=== PATIENT | female | born 2005 | race Caucasian/White ===

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

== ENCOUNTER → 2023-08-07 | Outpatient (CLI) | payer OTHER, SELFPAY ==
--- NOTE | 2023-08-07 12:56 | MRI_ITS ---
STUDY: MRI RIGHT WRIST WITHOUT CONTRAST REASON FOR EXAM: Female, 18 years old. De Quervain, possible ganglion cyst, radial styloid tenosynovitis. TECHNIQUE: Standardized fat and water weighted pulse sequences were obtained in all 3 orthogonal planes. COMPARISON: Right wrist radiographs dated 10/05/2020. FINDINGS: A skin marker was placed along the lateral aspect of the right wrist at the site of clinical concern. Normal visualized distal radius and ulna. Normal distal radioulnar articulation (DRUJ). There is central disc thinning of the triangular fibrocartilage. Normal carpal bones. Normal radiocarpal, intercarpal and midcarpal articulations. Normal pisotriquetral articulation. Normal visualized interosseous scapholunate ligament. Normal visualized dorsal (extrinsic) ligaments. Normal visualized volar (extrinsic) ligaments. Normal extensor tendons. Normal flexor tendons. Normal carpal tunnel with a normal median nerve. Normal carpometacarpal articulation of the thumb. Normal second through fifth carpometacarpal articulations. Normal visualized metacarpal bones. There is no demonstrated soft tissue abnormality. MRI/Upper Ext Joint Only(Routine) IMPRESSION: No MRI evidence of De Quervain tenosynovitis, ganglion cyst, or radial styloid abnormality. Central disc thinning of the triangular fibrocartilage. Electronically Signed: Darryl Figueroa MD at 8:40 EDT ,
== END | disposition home or self-care (01) ==
LOC: MRI 12:31
PROVIDERS: PCP Student in an Organized Health Care Education/Training Program; Referring Provider Orthopaedic Surgery Sports Medicine; Visit Provider Orthopaedic Surgery Sports Medicine
DX: M65.4 Radial styloid tenosynovitis [de Quervain] (principal)
CPT/HCPCS: 73221

== ENCOUNTER 2023-12-08 17:47 | Emergency (ER) | payer OTHER, SELFPAY ==
[2023-12-08 17:47] VITALS: BP 136/74; PULSE 94; RESP 18; TEMP 36.3; O2SAT 100; BMI 28.0
--- NOTE | 2023-12-08 17:50 | RAD_ITS ---
INDICATION: Trauma, injury EXAMINATION/TECHNIQUE: X-RAY - LEFT XR Wrist Min 3 Views 3 VIEWS COMPARISON: None. FINDINGS: SOFT TISSUES: No soft tissue swelling or gas. No radiopaque foreign body. BONES/JOINTS: No acute fracture. Joint spaces anatomically aligned. RAD/Wrist min 3 Views IMPRESSION: No acute bony injury. Electronically Signed: Brian Xiong MD at 18:34 EDT ,
--- NOTE | 2023-12-08 20:42 | EX.ED.UPPERE ---
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 Client thought her wrist was the guard rail at the commode and started squeezing it very hard. She went to pull her wrist out and while twisting and felt a pop over the lateral aspect of the left wrist. She states that when she moves her wrist she continues to feel a pop. She notes tenderness laterally. Denies any numbness. PFSH PFS Medical History Left shoulder strain Physical exam, pre-employment De Quervain's tenosynovitis, right Gastroenteritis Irritable bowel syndrome Urinary tract infection with hematuria Hx of pyelonephritis Home Medications ?Medication ?Instructions ?Recorded ?Last Taken ?Type norgestimate 0.25 mg-ethinyl 1 tab PO DAILY 11/25/20 Unknown History estradiol 35 mcg tablet (Sprintec (28)) ibuprofen 200 mg tablet 600 mg (3 x 200 mg) PO ONCE #3 tabs 03/15/23 Unknown Rx Allergy/AdvReac Type Severity Reaction Status Date / Time cephalexin (From Keflex) Allergy Hives Verified 12/08/23 17:47 spider venom Allergy Hives Verified 12/08/23 17:47 Surgical History Hx of wisdom tooth extraction Social History household members: family Smoking Status: Never smoker alcohol intake: never substance use type: does not use ROS ROS ED Constitutional Constitutional ED: Denies chills or weight loss Eyes Eyes: Denies change in vision or diplopia ENT ENT ED: Denies ear pain, rhinorrhea or sore throat Cardiovascular Cardiovascular: Denies chest pain, orthopnea, palpitations or racing heartbeat Respiratory/Chest Respiratory/Chest: Denies cough, dyspnea or orthopnea Gastrointestinal Gastrointestinal: Denies abdominal pain, diarrhea, nausea or vomiting Genitourinary Genitourinary ED: Denies dysuria, hematuria or urinary frequency Musculoskeletal Musculoskeletal: Reports other Details: see HPI ; Denies arthralgias or myalgias Integumentary Denies abscess or rash Neurologic Neurologic: Denies headache(s) or weakness Psychiatric Psychiatric: Denies anxiety, depression, suicidal ideation or suicidal thoughts Endocrine Endocrinology: Denies polydipsia, polyphagia or polyuria Allergic/Immunologic Allergic/Immunologic ED: Denies mouth swelling, tongue swelling or urticaria EXAM Physical Exam Const Vital Signs: 12/08/23 17:47 Temperature 97.4 F L Temperature Source Temporal Pulse Rate 94 Respiratory Rate 18 Blood Pressure 136/74 H Blood Pressure Mean 94 Pulse Ox 100 Oxygen Delivery Method Room Air Positive well nourished and well developed General Appearance ED: well developed and NAD HEENT Reports normocephalic, head/scalp atraumatic and moist mucous membranes Eyes PERRL and EOMs intact bilaterally Neck no lymphadenopathy, supple and no JVD Resp normal respiratory effort and clear to auscultation bilaterally Cardio regular rate, regular rhythm and no murmurs GI normal to inspection, nondistended, normoactive bowel sounds and non-tender Palpation: soft Back/Spine no CVA tenderness and normal ROM Extremity Extremity Narrative: Patient has tenderness over the radial styloid and along the abductor pollicis /extensor pollicis tendon. There is no tenderness between the radius and the ulna. I do not appreciate ligamentous instability. Neurovascular the patient appears intact. No significant swelling or ecchymosis is seen. General Extremety ED: Negative for edema General Extremity: Negative for edema Neuro oriented x3 and CN's II-XII intact bilaterally Sensorium / Orientation: alert Motor Exam: strength 5/5 throughout Psych mental status grossly normal Mood & Affect: Negative for depressed or tearful Skin no rashes or lesions noted and no wounds MDM MDM MDM Narrative Medical decision making narrative: Differential diagnosis includes but not limited to fracture ligamentous sprain tendon injury neurovascular injury My independent interpretation of the plain films of the left wrist is no acute fracture. Patient be placed in a thumb spica splint. Advised to take anti-inflammatories and ice as needed. [facility]up with [facility] for Workmen's Comp. History & Record Review Discussion w/independent historian: Patient Radiography Diagnostic Testing: Clinical Impression(s) from Imaging Studies Wrist X-Ray 12/08/23 17:50 IMPRESSION: No acute bony injury. Electronically Signed: Brian Xiong MD at 18:34 EDT , Discharge Plan Triage Chief Complaint: Upper Extremity Injury ED Provider: Antonio West Dx/Rx/DC Orders Clinical Impression: Left wrist sprain, Acute wrist pain Instructions: ED Wrist Sprain Prescriptions: No Action ibuprofen 200 mg tablet 600 mg PO ONCE Qty: 3 0RF norgestimate-ethinyl estradiol [Sprintec (28)] 0.25-35 mg-mcg Tablet 1 tab PO DAILY Primary Care Provider: Camron Buenrostro Referrals: Camron Buenrostro DO [Primary Care Provider] - [facility] [Non-Staff] - As soon as possible (for workman's compensation follow up) Print Language: [place] Disposition Disposition: Home, Self Care Discharge Date/Time: 12/08/23 21:04
== END 2023-12-08 21:04 | disposition home or self-care (01) ==
LOC: ED 20:56
PROVIDERS: Emergency Provider Emergency Medicine; PCP Student in an Organized Health Care Education/Training Program; Referring Provider Emergency Medicine; Visit Provider Emergency Medicine
DX: S63.92XA Sprain of unspecified part of left wrist and hand, initial encounter (principal); X50.1XXA Overexertion from prolonged static or awkward postures, initial encounter; Y99.0 Civilian activity done for income or pay; Z88.1 Allergy status to other antibiotic agents
CPT/HCPCS: 73110; 99283

== ENCOUNTER → 2024-02-08 | Outpatient (CLI) | payer OTHER, SELFPAY ==
--- NOTE | 2024-02-08 16:50 | RAD_ITS ---
STUDY: X-RAY - RIGHT SHOULDER REASON FOR EXAM: Female, 18 years old. Right shoulder injury TECHNIQUE: 4 view(s) of the shoulder. COMPARISON: None. FINDINGS: Normal glenohumeral articulation. Normal acromioclavicular joint. Normal acromion. Normal humeral head and visualized proximal humerus. The soft tissue structures are unremarkable. There is no demonstrated fracture. Normal visualized pulmonary apex. RAD/Shoulder min 2 Views IMPRESSION: Normal x-ray examination of the shoulder. Electronically Signed: Delonte Zavala MD at 17:58 EST ,
== END | disposition home or self-care (01) ==
PROVIDERS: PCP Student in an Organized Health Care Education/Training Program; Referring Provider Physician Assistant Surgical; Visit Provider Physician Assistant Surgical
DX: S46.911A Strain of unspecified muscle, fascia and tendon at shoulder and upper arm level, right arm, initial encounter (principal)
CPT/HCPCS: 73030

== ENCOUNTER 2024-03-21 11:30 | Outpatient (RCR) | payer OTHER, BC, SELFPAY ==
--- NOTE | 2024-02-19 12:20 | HP.PTEVAL_ITS ---
Patient's Visit Information Visit Information Visit Information: MICHAEL POLK is a 18 year old F referred to Physical Therapy by TONYA Meyers with a diagnosis of RIGHT SHOULDER STRAIN. Date of Evaluation: 02/19/24 Physical Therapist: Hussein Brody, PT, Cert MDT, OCS Visit Plan Frequency: 2x /Week Duration: 4-6 Weeks Plan: PT INTERVENTIONS ROM SHOULDER ,ERTC/SCAPULAR STRENGTHENING ,POSTURAL EX'S AND MODALTIES Subjective Subjective: This 18 y/o female presents to physical therapy with right shoulder pain. Patient injury to right shoulder 02/08/24 at work transferring patient . Patient developed with pain and paresthesia/tingling. [facility] x- [facility] - .Patient was on light duty until 03/01/24. Pain/numbness is anterior julia ulder . Aggravating lifting arm ,lifting OH,pushing and sleeping. Alleviating cold and Advil. Symptoms affects sleeping. Patient [facility] 03[facility]. Patient is on light duty . Patient condition affects QOL and function and RTW full duty. Patient goals to RTW and no pain. SOCAIL: single ,lives with parents VOCATION: [employer] Pain Right Shoulder: Pain Intensity (Out of 10): 8 Pain Intensity Range: 10 Objective Objective: POSTURE: mild forward posture head forward posture PALAPTION: tender anterior shoulder long head bicep NEURO: c/o paresthesia/tingling ,anterior shoulder ,reflexes C5-6-7 2/3 AROM: shoulder flexion 120 degrees pain ,abduction 100 degrees pain,ER 90 degrees ,IR T12 PROM: shoulder flexion 150 degrees ,150 degrees abduction ,ER 90 MMT: ( peak force) infraspinatus 9.8 ,subscapularis 7.8 ,supraspinatus 8.9 ,deltoid 6.8 pain CERVICAL ROM: flexion WFL ,lateral flexion/rotation ,extension MIN loss Special Tests C/S Radiculapathy - Left Upper limb tension test: Negative C/S Radiculapathy - Right Upper limb tension test: Negative C/S Radiculapathy - Left Spurlings: Negative C/S Radiculapathy - Right Spurlings: Negative Sharp Mary: Negative Vertebral Artery Test: Negative Alar Ligament Test: Negative R Shoulder Lift Off Test - Subscapular Tear: Negative R Shoulder Drop Sign - IS Test: Negative R Shoulder Empty Can - SS: Positive R Shoulder Belly Press - SupScap: Negative R Shoulder Neer - Impingement: Positive R Shoulder Ipke Case - Impingement: Positive Balance/Special Test Scores Quick DASH Score: 61.3625 Goals Goal 1:: Patient to be I with HEP shoulder Goal Time Frame: 4-6 Weeks Goal 2:: Patient to improve AROM 150 degrees flexion/abduction for ADLS above 90 degrees Goal Time Frame: 4-6 Weeks Goal 3:: Patient to improve peak force RTC and deltoid by 5-10# to improve function Goal Time Frame: 4-6 Weeks Goal 4:: Patient to demonstrate 60 % improvement with less pain and improved function with job deamds Goal Time Frame: 4-6 Weeks Goal 5:: Patient to improve quick dash by 5 points to improve QOL and function. Goal Time Frame: 4-6 Weeks Rehabilitation Potential Physical Therapy Diagnosis: This patient injury to right shoulder transferring patient felt pain/numbness with pain ,decrease ROM ,weakness thus benefit from skilled PT Rehabilitation Potential: Good Anticipated Interventions Patient/Client Instruction: Educate patient on: Condition and Plan of Care For the Purpose of:: To decrease pain, To increase ROM, To improve muscle performance and motor function, To improve ability to perform ADL's, To increase tolerance to activity/condition/position, To improve ability of physical actions for home/community/work/leisure, To improve health of tissue, To decrease soft tissue restriction, To increase flexibility/ROM and To improve tolerance to ADL's Therapeutic Exercise to Include: Strength training, Postural training, Flexibilty training, Passive ROM, Active ROM and Scapular Strength/Stabilization Comment: RTC For the Purpose of:: To decrease pain, To increase ROM, To improve muscle performance and motor function, To improve ability to perform ADL's, To improve ability of physical actions for home/community/work/leisure, To improve health of tissue, To decrease soft tissue restriction, To increase flexibility/ROM, To improve endurance, To reduce risk of recurrence and To improve tolerance to ADL's TENS: Yes IF ES: Yes Cryotherapy (ice pack, ice massage): Yes Thermo therapy (hot pack): Yes Ultrasound (thermal/non thermal): Yes For the Purpose of:: To decrease pain, To increase ROM, To improve muscle performance and motor function, To improve ability to perform ADL's, To increase tolerance to activity/condition/position, To improve ability of physical actions for home/community/work/leisure, To improve health of tissue, To decrease soft tissue restriction, To increase flexibility/ROM and To improve tolerance to ADL's Text: Thank you for the opportunity to evaluate your patient. For Medicare and Medicare HMO plans, please review the plan of care and approve it. It will need to be FAXED BACK to us at [phone] for Medicare purposes. For Medicare only, by signing this I certify the plan of care. Please let me know if there are questions or concerns regarding this plan of care. Physician Signature: ___Date:
--- NOTE | 2024-03-21 12:19 | HP.PTDCSUM ---
Discharge Summary D/C summary: It has been my pleasure to treat MICHAEL POLK referred by TONYA Meyers, with the diagnosis of RIGHT SHOULDER STRAIN for a total of 14 visit(s). Discharge Date: Please see the following information for a summary of their discharge status. Subjective Subjective: Doing good no pain Ready for full duty Pain Right Shoulder: Pain Intensity (Out of 10): 0 Overall Improvement % Improvement: 100 Objective Objective/Function: AROM: shoulder flexion 170 degrees ,abduction 170 degrees ,ER 90 degrees ,IR T10 MMT: infraspinatus 17.9 ,supraspinatus 19.9 ,deltoid 19.1 Goals Goal 1:: Patient to be I with HEP shoulder Goal 2:: Patient to improve AROM 150 degrees flexion/abduction for ADLS above 90 degrees Goal 3:: Patient to improve peak force RTC and deltoid by 5-10# to improve function Goal 4:: Patient to demonstrate 60 % improvement with less pain and improved function with job deamds Goal 5:: Patient to improve quick dash by 5 points to improve QOL and function. Plan Plan: D/C D/C Information d/c sentence: If there are questions or concerns regarding this patient's physical therapy, please feel free to call me at [phone]. Thank you for the referral of this patient. Sincerely, Hussein Brody PT, Cert MDT, OCS Balance/Gait/Functional tests Balance/Special Test Scores Quick DASH Score: 2.2725 Improvement % Improvement: 100
== END 2024-03-21 19:00 | disposition home or self-care (01) ==
LOC: PT 11:30
PROVIDERS: PCP Student in an Organized Health Care Education/Training Program; Visit Provider Physician Assistant Surgical
DX: S46.911D Strain of unspecified muscle, fascia and tendon at shoulder and upper arm level, right arm, subsequent encounter (principal)
CPT/HCPCS: 97110; 97140; 97161; 97530

== ENCOUNTER 2024-04-11 05:41 | Emergency (ER) | payer BC, SELFPAY ==
[2024-04-11 05:41] VITALS: BP 135/82; PULSE 90; RESP 16; TEMP 36.8; O2SAT 100; BMI 27.6
--- NOTE | 2024-04-11 05:55 | EDS_ITS ---
HPI History of Present Illness Chief Complaint: Abd Pain Informant: patient Narrative Narrative: Patient is a 18-year-old female with past medical history of IBS. She states she went to bed normally and then awoke around 4 in the morning and noticed pain in the mid to right upper quadrant of her abdomen and had 1 bout of nausea and vomiting. She states that she has not had any type of dysuria or hematuria that she is not on her menstrual cycle and she denies any concern for STD or . She does report that abdominal pain is kind of normal for her as she has a history of IBS but that this is different in nature and secondary to his abnormal presentation from her baseline she presents for evaluation [facility] Medical History Left shoulder strain Physical exam, pre-employment De Quervain's tenosynovitis, right Gastroenteritis Irritable bowel syndrome Urinary tract infection with hematuria Hx of pyelonephritis Home Medications ?Medication ?Instructions ?Recorded ?Last Taken ?Type norgestimate 0.25 mg-ethinyl 1 tab PO DAILY 11/25/20 U nknown History estradiol 35 mcg tablet (Sprintec (28)) ibuprofen 200 mg tablet 600 mg PO ONCE PRN fever or pain 04/11/24 Unknown History ketorolac 10 mg tablet 10 mg PO 4X/DAY PRN pain 5 d ays 04/11/24 Unknown Rx #20 tabs ondansetron 4 mg disintegrating 4 mg PO TID PRN nausea and 04/11/24 Unknown Rx tablet vomiting #21 tabs oxycodone-acetaminophen 5 mg-325 1 tab PO Q6H PRN pain 3 days #12 04/11/24 Unknown Rx mg tablet (Percocet) tabs Allergy/AdvReac Type Severity Reaction Status Date / Time cephalexin (From Keflex) Allergy Hives Verified 04/11/24 05:45 spider venom Allergy Hives Verified 04/11/24 05:45 Surgical History Hx of wisdom tooth extraction Social History household members: family Smoking Status: Never smoker alcohol intake: never substance use type: does not use ROS ROS ED Constitutional Constitutional ED: Denies chills or fever(s) ENT ENT ED: Denies sore throat Cardiovascular Cardiovascular: Denies chest pain Respiratory/Chest Respiratory/Chest: Denies cough or dyspnea Gastrointestinal Gastrointestinal: Reports abdominal pain, nausea and vomiting; Denies diarrhea Genitourinary Genitourinary ED: Denies dysuria or hematuria Musculoskeletal Musculoskeletal: Reports back pain Integumentary Denies rash Neurologic Neurologic: Denies headache(s) Hematologic/Lymphatic Hematologic/Lymphatic: Denies easy bleeding or easy bruising EXAM Physical Exam Const Vital Signs: 04/11/24 05:41 04/11/24 06:58 Temperature 98.2 F Temperature Source Oral Pulse Rate 90 84 Respiratory Rate 16 18 Blood Pressure 135/82 H 132/71 H Blood Pressure Mean 99 91 Pulse Ox 100 99 Oxygen Delivery Method Room Air Room Air Positive well nourished and well developed General Appearance ED: well developed; Negative for pallor HEENT Reports moist mucous membranes HEENT Narrative: There is a single herpangina lesion along the right posterior pharynx/uvula without trismus change in voice or difficulty with secretions Eyes PERRL and EOMs intact bilaterally General Eye ED: Negative for scleral icterus Neck supple Neck Narrative: No nuchal rigidity or meningeal signs noted Resp normal respiratory effort and clear to auscultation bilaterally Cardio regular rate and regular rhythm Rate: other Other Details: Heart is regular rate and rhythm without murmurs rubs or gallops Radial and carotid pulses equal and symmetric GI non-distended and no masses GI Narrative: Abdomen is soft and nondistended with normal active bowel sounds. There is pain with palpation in the midepigastric and right upper quadrant region without voluntary guarding or rigidity or pulsatile mass Negative Hill sign Auscultation: normoactive bowel sounds Palpation: soft Back/Spine Back/Spine Narrative: Mild right CVA pain noted Extremity normal to inspection Neuro oriented x3, CN's II-XII intact bilaterally and no sensory deficits noted Sensorium / Orientation: alert Motor Exam: strength 5/5 throughout Psych mental status grossly normal Skin no rashes or lesions noted and no wounds Skin Narrative: No overlying soft tissue changes to suggest trauma or infection General Skin Exam: Negative for jaundice or pallor MDM MDM MDM Narrative Medical decision making narrative: Patient arrived to the ER with stable vitals and a soft nonsurgical abdomen therefore I felt no need for emergent imaging study. With pain in the upper abdomen and right upper quadrant there is concern for gastritis versus viral stomach infection such as norovirus versus rotavirus versus acute pancreatitis versus biliary colic or acute cholecystitis. Patient could also potentially have an atypical presentation for complication or with mild right- sided CVA pain a kidney stone or pyelonephritis. With the herpangina lesions in the posterior pharynx there is also concern for early strep presentation. Secondary to his basic labs were obtained with urine sample and rapid strep swab. White count is normal there is no left shift going against systemic infectious process. Liver enzymes are normal going against biliary colic and lipase is normal going against acute pancreatitis. Patient is urine sample does show +1 bacteria but there is contamination with skin cells and she does not have urinary symptoms and therefore I do not feel this is UTI in nature. She does have occult blood on the urine dip but no blood noted on micro however she is not on her menstrual cycle and with pain along the right side of abdomen that is not improving with medication there is concern this could be atypical presentation for kidney stone or gallbladder dysfunction and therefore a CT of the abdomen pelvis with IV contrast will be obtained. At this time imaging studies are still pending and therefore patient be signed out to the [facility] History & Record Review Discussion w/independent historian: Patient Lab Data Attestation: I reviewed the patient's lab results. Labs: Laboratory Results - last 24 hr 04/11/24 04/11/24 05:47 06:03 WBC 8.4 RBC 5.17 Hgb 13.8 Hct 41.8 MCV 80.9 L MCH 26.7 L MCHC 33.0 RDW Std Deviation 39.6 RDW Coeff of Bryant 13.5 Plt Count 391 MPV 9.1 Immature Gran % (Auto) 0.400 Neut % (Auto) 50.1 Lymph % (Auto) 40.0 [place] % (Auto) 7.1 Eos % (Auto) 1.7 Baso % (Auto) 0.7 Absolute Neuts (auto) 4.2 Absolute Lymphs (auto) 3.37 Nucleated RBC % 0 Sodium 139 Potassium 3.8 Chloride 105 Carbon Dioxide 22.5 Anion Gap 12 BUN 9 Creatinine 0.74 Estim Creat Clear Calc 136.50 Est GFR (MDRD) Non-Af 118 BUN/Creatinine Ratio 11.8 Glucose 145 H Calcium 9.0 Total Bilirubin 0.64 Direct Bilirubin 0.27 AST 14 ALT 7 Alkaline Phosphatase 68 Total Protein 7.0 Albumin 3.7 Globulin 3.3 Lipase 26 Urine Color Yellow Urine Clarity Sl. Cloudy Urine pH 6.0 Ur Specific [place] 1.015 Urine Protein 15 H Urine Glucose (UA) Normal Urine Ketones Negative Urine Occult Blood 250 H Urine Nitrite Negative Urine Bilirubin Negative Urine Urobilinogen Normal Ur Leukocyte Esterase 500 H Urine RBC 0 SEEN Urine WBC 10-25 SEEN Ur Squamous Epith Cells 5-10 SEEN Urine Bacteria 1+ Urine Mucus 0 SEEN Urine Test Negative Discharge Plan Triage Chief Complaint: Abd Pain ED Provider: José Smith Dx/Rx/DC Orders Prescriptions: New ondansetron 4 mg tablet,disintegrating 4 mg PO TID PRN (Reason: nausea and vomiting) Qty: 21 0RF ketorolac 10 mg tablet 10 mg PO 4X/DAY PRN (Reason: pain) 5 Days Qty: 20 0RF oxycodone-acetaminophen [Percocet] 5-325 mg tablet 1 tab PO Q6H PRN (Reason: pain) 3 Days Qty: 12 0RF No Action norgestimate-ethinyl estradiol [Sprintec (28)] 0.25-35 mg-mcg Tablet 1 tab PO DAILY ibuprofen 200 mg tablet 600 mg PO ONCE PRN (Reason: fever or pain) Primary Care Provider: Camron Buenrostro Referrals: Camron Buenrostro DO [Primary Care Provider] - Print Language: [place]
[2024-04-11] MEDS: Ketorolac 30 MG/ML Syringe IV (06:07)
[2024-04-11] MEDS: Ondansetron 4 MG/2 ML Vial IV (06:07)
[2024-04-11] MEDS: 0.9% Normal Saline (1000mL) 1,000 ML 999 ML IV (06:07)
[2024-04-11 06:16] LABS: Mucous, Urine 0 SEEN /hpf (<or=2+)
[2024-04-11 06:24] LABS: Color, Urine Yellow (Yellow); Glucose, Dipstick Normal (Normal); Ketone-Dipstick Negative (Negative); Leukocyte Esterase-Dipstick 500 /ul (Negative); Nitrite-Dipstick Negative (Negative); Occult Blood-Urine 250 /ul (Negative); Protein-Dipstick 15 mg/dl (Negative); Specific Gravity, Urine 1.015 (1.002-1.030); Urine Bilirubin Dipstick Negative (Negative); Urine Clarity Sl. Cloudy (Clear); Urine Urobilinogen Normal (Normal)
[2024-04-11 06:24] LABS: Absolute Lymphocyte Count 3.37 X10^3/uL (0.83-4.51); Absolute Neutrophil Count 4.2 X10^3/uL (2.0-7.7); Basophil# 0.06 X10^3/uL; Basophil% 0.7 % (0-1); Eosinophil# 0.14 X10^3/uL; Eosinophils% 1.7 % (0-5); Hematocrit 41.8 % (37-47); Hemoglobin 13.8 g/dL (12.0-15.0); Lymphocyte # 3.37 X10^3/ul (0.83-4.51); Mean Corpuscular Hgb 26.7 pg (27.0-32.0); Mean Corpuscular Volume 80.9 fL (81-99); Mean Platelet Vol. 9.1 fl (6.2-12.0); Monocyte% 7.1 % (0-10); NRBC Flagged by Analyzer 0 % (0-5); Neutrophil # 4.22 X10^3/uL (2.7-7.7); Neutrophil % 50.1 % (47-70); Platelet Count 391 K/mm3 (150-450); RBC Distribution Width CV 13.5 % (11.6-14.6); RBC Distribution Width SD 39.6 fl (35.1-43.9); Red Blood Count 5.17 M/mm3 (4.2-5.4); White Blood Count 8.4 K/mm3 (4.4-11.0)
[2024-04-11 06:48] LABS: AST(SGOT) 14 U/L (<=31); Alanine Aminotransfer ALT/SGPT 7 U/L (<=34); Albumin, Serum 3.7 g/dL (3.5-5.0); Alkaline Phosphatase 68 U/L (35-104); Anion Gap 12 (5-15); BUN 9 mg/dL (4-19); BUN/Creat Ratio 11.8 RATIO (10-20); Bilirubin, Direct 0.27 mg/dL (0.00-0.30); Carbon Dioxide 22.5 mmol/L (21.0-32.0); Chloride 105 mmol/L (98-108); Creatinine, Serum 0.74 mg/dL (0.70-1.20); EST Glomerular Filtration Rate 118 (>60); Globulin 3.3 g/dL (2.2-4.2); Glucose 145 mg/dL (70-99); Lipase 26 U/L (13-75); Potassium 3.8 mmol/L (3.3-5.1); Sodium Level 139 mmol/L (133-145); Total Bilirubin 0.64 mg/dL (0.00-1.30)
[2024-04-11] MEDS: Morphine 4 MG/ML Syringe IV (06:56)
[2024-04-11 06:58] VITALS: BP 132/71; PULSE 84; RESP 18; O2SAT 99
[2024-04-11 07:26] LABS: Bacteria 1+ /hpf (None Seen); Red Blood Cells-Urine 0 SEEN /hpf (0-5); Squamous Epithelial Cells - UA 5-10 SEEN /hpf (5-10); White Blood Cells 10-25 SEEN /hpf (0-5)
[2024-04-11 07:27] LABS: Internal QC Validated? YES +Cl - CLEAR BKGD; Pregnancy, Urine Negative Negative
[2024-04-11] MEDS: HYDROmorphone 0.5 MG/0.5 ML SYRINGE IV (07:52)
[2024-04-11 08:00] VITALS: BP 117/93; PULSE 76; RESP 18; O2SAT 99
--- NOTE | 2024-04-11 08:08 | CT_ITS ---
PROCEDURE: ABDOMEN/PELVIS W IV CONT ONLY REASON FOR EXAM: Right-sided abdominal pain. History of inflammatory bowel syndrome. TECHNIQUE: Abdomen and pelvis CT with intravenous contrast. COMPARISON: CT abdomen and pelvis of 01/16/2020.. FINDINGS: Lung bases: Clear Liver: Unremarkable. Gallbladder: Unremarkable. Spleen: Unremarkable. Pancreas: Unremarkable. Adrenals: Unremarkable. Kidneys: No renal calculus is seen. No evidence of hydronephrosis. Bladder: Unremarkable. Reproductive Organs: Unremarkable. Bowel: A moderate stool burden is seen. The bowel-gas pattern is otherwise unremarkable. Appendix: Normal. Lymph nodes: No suspicious lymph node enlargement. Vasculature: Major vascular structures are unremarkable. Peritoneum / Retroperitoneum: No significant amount of free fluid is seen. No free air. Bones: Unremarkable. No area of abnormal postcontrast enhancement is seen. CT/Abdomen/Pelvis W IV Cont ONLY IMPRESSION: 1. Moderate stool burden. 2. No acute process is seen. One or more dose reduction techniques were used (e.g., Automated exposure contr ol, adjustment of the mA and/or kV according to patient size, use of iterative reconstruction technique). Reading Location: [id number]
[2024-04-11 09:52] VITALS: BP 117/93; PULSE 76; RESP 18; TEMP 36.6; O2SAT 99
== END 2024-04-11 09:53 | disposition home or self-care (01) ==
PROVIDERS: Emergency Provider Emergency Medicine; PCP Student in an Organized Health Care Education/Training Program; Visit Provider Emergency Medicine
DX: R10.11 Right upper quadrant pain (principal); R11.2 Nausea with vomiting, unspecified; K58.9 Irritable bowel syndrome, unspecified; B08.5 Enteroviral vesicular pharyngitis; Z88.1 Allergy status to other antibiotic agents; Z87.19 Personal history of other diseases of the digestive system; Z87.440 Personal history of urinary (tract) infections
CPT/HCPCS: 74177; 80048; 80076; 81001; 81025; 83690; 85025; 87651; 96361; 96374; 96375; 99283; Q9967; A4216; J2405

== ENCOUNTER 2024-04-11 16:00 | Emergency (ER) | payer BC, SELFPAY ==
[2024-04-11 16:01] VITALS: BP 139/92; PULSE 79; RESP 18; TEMP 36.5; O2SAT 98; BMI 27.2
--- NOTE | 2024-04-11 17:04 | US_ITS ---
PROCEDURE: GALLBLADDER REASON FOR EXAM: Pain COMPARISON: CT of same date FINDINGS: Exam is slightly limited by shadowing bowel gas. Liver: Unremarkable. 15.7 cm in length. Echogenic lesion in the right lobe measures 7 x 6 x 7 mm with suspected faint correlate inferiorly on comparison CT. Gallbladder: No visualized stones, sludge, wall thickening or pericholecystic fluid. Reportedly, sonographic Hill's was negative. Common bile duct: Unremarkable. CBD measures 4 mm. Pancreas: Poorly visualized due to shadowing bowel gas. No definite abnormality. Right kidney: Unremarkable. 10.5 cm in length. Fullness of the prominent extrarenal pelvis without janeth caliectasis/hydronephrosis. Other: No visualized free fluid. US/Gallbladder IMPRESSION: 1. No visualized cholelithiasis or findings to suggest cholecystitis. No bilia ry dilatation. 2. 7 mm hepatic lesion could reflect a hemangioma however this is not definite definitive by ultrasound. If there is history of known malignancy, known hepatocellular disease, if the patient is otherwise irma med high risk, recommend outpatient multiphase hepatic protocol MRI with and without contrast, or CT if there is a contraindic ation. Otherwise, sonographic follow-up may be considered to evaluate stability. 3. Additional description as above. Reading Location: [facility]
--- NOTE | 2024-04-11 17:21 | EDS_ITS ---
HPI History of Present Illness Chief Complaint: Nausea/Vomiting Narrative Narrative: Patient is a 18-year-old female with a past medical history of IBS who presents to the emergency department with a chief complaint of abdominal pain. Patient states that she was here earlier in the day and notes that she was ultimately sent home after a workup was performed. She states that she was sent home with some Zofran and other medications. States that she did not take any of these as she was unsure when she could start taking these medications that she was given them here in the emergency department. Patient states that she has had worsening nausea. According to triage note it says that she has had increased confusion and dizziness after rediscussing this with the patient she feels more lightheaded not dizzy and when asked about the confusion aspect her significant other at bedside states that she is just not acting her normal self. [facility] Medical History Left shoulder strain Physical exam, pre-employment De Quervain's tenosynovitis, right Gastroenteritis Irritable bowel syndrome Urinary tract infection with hematuria Hx of pyelonephritis Home Medications ?Medication ?Instructions ?Recorded ?Last Taken ?Type norgestimate 0.25 mg-ethinyl 1 tab PO DAILY 11/25/20 U nknown History estradiol 35 mcg tablet (Sprintec (28)) ibuprofen 200 mg tablet 600 mg PO ONCE PRN fever or pain 04/11/24 Unknown History ketorolac 10 mg tablet 10 mg PO 4X/DAY PRN pain 5 d ays 04/11/24 Unknown Rx #20 tabs ondansetron 4 mg disintegrating 4 mg PO TID PRN nausea and 04/11/24 Unknown Rx tablet vomiting #21 tabs oxycodone-acetaminophen 5 mg-325 1 tab PO Q6H PRN pain 3 days #12 04/11/24 Unknown Rx mg tablet (Percocet) tabs Allergy/AdvReac Type Severity Reaction Status Date / Time cephalexin (From Keflex) Allergy Hives Verified 04/11/24 16:01 spider venom Allergy Hives Verified 04/11/24 16:01 Surgical History Hx of wisdom tooth extraction Social History household members: family housing: apartment Smoking Status: Never smoker alcohol intake: never substance use type: does not use ROS ROS ED ROS Narrative Constitutional: Denies headache, dizziness, fevers, chills Eyes: Denies change in vision double vision blurry vision Cardiovascular: Denies chest pain or palpitations Respiratory: Denies coughing wheezing shortness of breath Abdomen: Complains of abdominal pain and nausea as noted above denies vomiting or diarrhea : Denies any urinary symptoms Neurological: Denies numbness, weakness, tingling Musculoskeletal: Denies back pain Skin: Denies rashes or lesions EXAM Physical Exam Narrative Exam Narrative: General: Patient was lying in bed resting comfortably did not appear to be in acute distress Head: Atraumatic, normocephalic Eyes: PERRL bilaterally, EOMI bilaterally, no conjunctival injection noted Neck: Soft, supple, trachea midline Cardiovascular: Regular rate and rhythm no murmurs gallops rubs noted Respiratory: Clear to auscultation bilaterally no rales rhonchi or wheezes noted Abdomen: Soft, nondistended, tender to palpation of the right upper quadrant no rebound or guarding on exam Extremities: +5/5 strength noted in the bilateral upper and lower extremities, radial pulses +2/4 in the right upper extremities, no pedal edema no exam Neurological: Patient follow commands knew that she was at [facility] year is 2024. NIH of 0 GCS 15. Patient told me that the president currently is Serafin and we are in winter. Patient completed finger-nose and [id number] test bilaterally fine difficulty Skin: Warm, dry, intact no rashes or lesions noted Const Vital Signs: 04/11/24 16:01 Temperature 97.7 F L Temperature Source Oral Pulse Rate 79 Respiratory Rate 18 Blood Pressure 139/92 H Blood Pressure Mean 107 Pulse Ox 98 Oxygen Delivery Method Room Air MDM MDM MDM Narrative Medical decision making narrative: Patient is a 18-year-old female who presented to the emergency department chief complaint of abdominal pain and nausea. Patient will have a workup performed here on the differential diagnose includes but not limited to cholecystitis, viral gastroenteritis, bowel obstruction. Once workup is obtained reviewed she will be reevaluated. Patient was refusing blood work here in the emergency department she just wants her ultrasound. Patient's ultrasound was reviewed and showed no evidence of cholecystitis no biliary ductal dilation. There is 7 mm hepatic lesion could reflect a meningioma however this is not defined definite by ultrasound if there is a history of known malignancy which there is not, known hepatocellular disease which there is knots, or if there deemed high risk they are recommending outpatient multiphase hepatic protocol MRI with and without contrast. Patient was given a hard copy of this result and was advised to follow-up with her primary care physician on this. I did review the patient's blood work from earlier this morning and once again the patient CBC was largely unremarkable, CMP did not reveal any acute findings she had a normal AST and ALT with a normal total bilirubin urinalysis was not sent for culture I did send this for culture but she does not have any urinary symptoms therefore we will hold off on antibiotics and test was negative. I discussed this results with the patient mother at bedside as well as her significant other and herself. I advised her to start with a bland diet and advance as tolerated and use the medications that she was prescribed. She was advised to follow-up with gastroenterology in the outpatient setting as well. She was encouraged return with worsening symptoms or concerns. She is agreeable this plan all course concerns answered she was discharged home in stable condition. Radiography Diagnostic Testing: Clinical Impression(s) from Imaging Studies Gallbladder Ultrasound 04/11/24 17:04 IMPRESSION: 1. No visualized cholelithiasis or findings to suggest cholecystitis. No biliary dilatation. 2. 7 mm hepatic lesion could reflect a hemangioma however this is not definite definitive by ultrasound. If there is history of known malignancy, known hepatocellular disease, if the patient is otherwise deemed high risk, recommend outpatient multiphase hepatic protocol MRI with and without contrast, or CT if there is a contraindication. Otherwise, sonographic follow-up may be considered to evaluate stability. 3. Additional description as above. Reading Location: [id number] Discharge Plan Triage Chief Complaint: Nausea/Vomiting Other Complaint: Confusion ED Provider: Earnest Stack Dx/Rx/DC Orders Clinical Impression: Abdominal pain Prescriptions: No Action norgestimate-ethinyl estradiol [Sprintec (28)] 0.25-35 mg-mcg Tablet 1 tab PO DAILY ibuprofen 200 mg tablet 600 mg PO ONCE PRN (Reason: fever or pain) ondansetron 4 mg tablet,disintegrating 4 mg PO TID PRN (Reason: nausea and vomiting) Qty: 21 0RF ketorolac 10 mg tablet 10 mg PO 4X/DAY PRN (Reason: pain) 5 Days Qty: 20 0RF oxycodone-acetaminophen [Percocet] 5-325 mg tablet 1 tab PO Q6H PRN (Reason: pain) 3 Days Qty: 12 0RF Primary Care Provider: Camron Buenrostro Referrals: Camron Buenrostro, [Primary Care Provider] - Activity Restrictions/Additional Instructions: Use the medications that you were prescribed earlier. Follow-up with gastroenterology in outpatient setting. Follow-up your primary care physician and follow-up on the urine culture result with your primary care physician. Return for worsening symptoms or concerns. Your ultrasound did not show any evidence of infection of your gallbladder. Your CT that you had earlier today showed constipation and no evidence of appendicitis. Print Language: Luxembourgish Disposition Disposition: Home, Self Care
[2024-04-11] MEDS: Morphine 4 MG/ML Syringe IM (17:34)
[2024-04-11] MEDS: Ondansetron ODT 4 MG Tablet PO (17:36)
[2024-04-11 18:00] VITALS: BP 142/79; PULSE 80; RESP 16; O2SAT 98
[2024-04-11 19:40] VITALS: BP 131/81; PULSE 82; RESP 16; TEMP 36.6; O2SAT 98
== END 2024-04-11 19:43 | disposition home or self-care (01) ==
PROVIDERS: Emergency Provider Emergency Medicine; PCP Student in an Organized Health Care Education/Training Program; Visit Provider Emergency Medicine
DX: R11.2 Nausea with vomiting, unspecified (principal); R10.9 Unspecified abdominal pain; K58.9 Irritable bowel syndrome, unspecified; K76.89 Other specified diseases of liver; Z88.1 Allergy status to other antibiotic agents; Z87.19 Personal history of other diseases of the digestive system; Z87.440 Personal history of urinary (tract) infections
CPT/HCPCS: 76705; 87086; 87088; 96372; 99283